=== PATIENT | male | born 1970 | race American Indian/Alaskan Native ===

== ENCOUNTER 2017-10-25 22:13 | Emergency (ER) | payer MEDICAID, OTHER ==
--- NOTE | 2017-10-25 22:30 | EDM.PDOC ---
ED HPI GENERAL MEDICAL PROBLEM - General Chief Complaint: Trauma Stated Complaint: AMBULANCE Time Seen by Provider: 10/25/17 22:22 Source of Information: Reports: Patient, EMS History Limitations: Reports: No Limitations - History of Present Illness INITIAL COMMENTS - FREE TEXT/NARRATIVE: EMS states pt was sitting in sister's p/u c/o falling on stairs ~ 1 hours ago. pt unable recall exactly c/o pain face and low chest-epiG area. sister arrived states doesn't know what happened. pt's daughter called them to take him to the hospital. pt admits to drinking "too much today". Bilateral Lower Chest Pain Score (Numeric/FACES): 8 - Related Data Allergies Allergy/AdvReac Type Severity Reaction Status Date / Time No Known Allergies Allergy Verified 10/25/17 22:25 Home Meds: Home Meds . [No Known Home Meds] 06/03/16 [History] Past Medical History HEENT History: Reports: None Cardiovascular History: Reports: None Respiratory History: Reports: None Gastrointestinal History: Reports: None Genitourinary History: Reports: None Musculoskeletal History: Reports: None Neurological History: Reports: None Psychiatric History: Reports: None Endocrine/Metabolic History: Reports: None Hematologic History: Reports: None Immunologic History: Reports: None Oncologic (Cancer) History: Reports: None Dermatologic History: Reports: None Social & Family History - Tobacco Use Smoking Status *Q: Light Tobacco Smoker Years of Tobacco use: 20 Packs/Tins Daily: 0.5 - Caffeine Use Caffeine Use: Reports: Coffee, Soda - Alcohol Use Days Per Week of Alcohol Use: 1 Number of Drinks Per Day: 6 Total Drinks Per Week: 6 - Recreational Drug Use Recreational Drug Use: No Review of Systems - Review of Systems Review Of Systems: ROS reveals no pertinent complaints other than HPI. ED EXAM, GENERAL - Physical Exam Exam: See Below Exam Limited By: No Limitations General Appearance: Alert, WD/WN, Mild Distress, Moderate Distress, Other (pain) Eye Exam: Bilateral Eye: PERRL (pupils ess ER @ 4mm) Ears: Hearing Grossly Normal Throat/Mouth: Normal Voice, No Airway Compromise Head: Facial Swelling (bilateral cheek ecchymosis, no O/B.), Facial Tenderness, Other Neck: Non-Tender, Full Range of Motion Respiratory/Chest: No Respiratory Distress Cardiovascular: Regular Rate, Rhythm GI/Abdominal: Guarding, Tender, Other. No: Distended (epiG area of ecchymosis) , Rigid, Rebound Neurological: Alert, Oriented, Normal Cognition, Normal Gait, No Motor/Sensory Deficits Psychiatric: Tearful Skin Exam: Warm, Dry, Normal Color Lymphatic: No Adenopathy Course - Vital Signs Last Recorded V/S: Last Vital Signs Temp 37.9 C 10/26/17 01:29 Pulse 107 H 10/26/17 01:29 Resp 16 10/26/17 01:29 BP 103/56 L 10/26/17 01:29 Pulse Ox 94 L 10/26/17 01:29 - Orders/Labs/Meds Orders: Active Orders 24 hr Category Date Time Status Abdomen wo Cont [CT] Urgent Exams 10/25/17 23:25 Taken Cervical Spine wo Cont [CT] Urgent Exams 10/25/17 22:26 Taken Chest Abdomen Pelvis w Cont [CT] Urgent Exams 10/25/17 22:26 Ordered Head wo Cont [CT] Urgent Exams 10/25/17 22:26 Taken Max Facial Sinus wo Cont [CT] Urgent Exams 10/25/17 23:02 Taken Sodium Chloride 0.9% [Normal Saline] 1,000 ml Med 10/25/17 22:30 Active IV ASDIRECTED Medication Orders Sodium Chloride (Normal Saline) 1,000 mls @ 200 mls/hr IV ASDIRECTED AYAKA Last Admin: 10/25/17 22:39 Dose: 200 mls/hr Labs: Laboratory Tests 10/25/17 10/25/17 Range/Units 22:25 22:25 WBC 10.1 H (5.0-10.0) 10^3/uL RBC 4.89 (4.6-6.2) 10^6/uL Hgb 15.1 (14.0-18.0) g/dL Hct 42.5 (40.0-54.0) % MCV 86.9 D (80-100) fL MCH 30.9 (27.0-34.0) pg MCHC 35.5 H (33.0-35.0) g/dL Plt Count 177 (150-450) 10^3/uL Neut % (Auto) 76.2 H (42.2-75.2) % Lymph % (Auto) 14.8 L (20.5-50.1) % Jessamine % (Auto) 7.8 (2-8) % Eos % (Auto) 0.7 L (1.0-3.0) % Baso % (Auto) 0.5 (0.0-1.0) % Sodium 137 (135-145) mmol/L Potassium 4.0 (3.6-5.0) mmol/L Chloride 101 (101-111) mmol/L Carbon Dioxide 23.0 (21.0-31.0) mmol/L Anion Gap 17.0 BUN 23 H (7-18) mg/dL Creatinine 0.9 (0.6-1.3) mg/dL Est Cr Clr Drug Dosing 101.47 mL/min Estimated GFR (MDRD) > 60 BUN/Creatinine Ratio 25.55 Glucose 234 H (74-105) mg/dL Calcium 9.3 (8.4-10.2) mg/dl Total Bilirubin 2.1 H (0.2-1.0) mg/dL AST 88 H (10-42) IU/L ALT 53 (10-60) IU/L Alkaline Phosphatase 107 (42-121) IU/L Troponin I < 0.02 (0.00-0.02) ng/ml Total Protein 7.8 (6.7-8.2) g/dl Albumin 4.4 (3.2-5.5) g/dl Globulin 3.4 Albumin/Globulin Ratio 1.29 Ethyl Alcohol 185 mg/dL Meds: Medications Generic Name Dose Route Start Last Admin Trade Name Freq PRN Reason Stop Dose Admin Sodium Chloride 1,000 mls @ 200 mls/hr 10/25/17 22:30 10/25/17 22:39 Normal Saline IV 200 mls/hr ASDIRECTED AYAKA Administration Discontinued Medications Generic Name Dose Route Start Last Admin Trade Name Freq PRN Reason Stop Dose Admin Iopamidol 100 ml 10/25/17 22:46 Isovue-300 (61%) IVPUSH 10/25/17 22:47 ONETIME ONE Morphine Sulfate 2 mg 10/25/17 22:30 10/25/17 22:35 Morphine IVPUSH 10/25/17 22:31 2 mg ONETIME ONE Administration Morphine Sulfate 2 mg 10/25/17 23:17 10/25/17 23:43 Morphine IVPUSH 10/25/17 23:18 2 mg ONETIME ONE Administration Ondansetron HCl 4 mg 10/25/17 22:30 10/25/17 22:35 Zofran IV 10/25/17 22:31 4 mg ONETIME ONE Administration Departure - Departure Time of Disposition: 01:36 Disposition: Home, Self-Care 01 Condition: Good Clinical Impression: Concussion with brief (less than one hour) loss of consciousness Contusion of face Qualifiers: Encounter type: initial encounter Qualified Code(s): S00.83XA - Contusion of other part of head, initial encounter Ribs, multiple fractures Qualifiers: Encounter type: initial encounter Fracture type: closed Laterality: right Qualified Code(s): S22.41XA - Multiple fractures of ribs, right side, initial encounter for closed fracture - Discharge Information Instructions: Rib Fracture, [id number] Forms: ED Department Discharge Additional Instructions: 1) rest and avoid bending lifting straining 2) take frequent deep breaths 3) follow up at clinic Saturday 4) recheck if there is any change or concern this . rx given; flexeril 10mg bid prn x 12 vicodin 5/325mg bid prn pain x 6 - My Orders Last 24 Hours: My Active Orders 10/25/17 22:26 Cervical Spine wo Cont [CT] Urgent Chest Abdomen Pelvis w Cont [CT] Urgent Head wo Cont [CT] Urgent 10/25/17 22:30 Sodium Chloride 0.9% [Normal Saline] 1,000 ml IV ASDIRECTED 10/25/17 23:02 Max Facial Sinus wo Cont [CT] Urgent 10/25/17 23:25 Abdomen wo Cont [CT] Urgent - Assessment/Plan Last 24 Hours: My Active Orders 10/25/17 22:26 Cervical Spine wo Cont [CT] Urgent Chest Abdomen Pelvis w Cont [CT] Urgent Head wo Cont [CT] Urgent 10/25/17 22:30 Sodium Chloride 0.9% [Normal Saline] 1,000 ml IV ASDIRECTED 10/25/17 23:02 Max Facial Sinus wo Cont [CT] Urgent 10/25/17 23:25 Abdomen wo Cont [CT] Urgent
[2017-10-25] MEDS: Ondansetron 4 MG/2 ML SDV IV ONE (22:35)
[2017-10-25] MEDS: Morphine 2 MG/ML Syringe IVPUSH ONE ×2 (22:35→23:43)
[2017-10-25] MEDS: Sodium Chloride 0.9% 1,000 ML IV SCH (22:39)
[2017-10-25] MEDS ORDERED: Iopamidol 612 MG/ML 100 ML Bottle IVPUSH ONE (22:46)
[2017-10-25 22:49] LABS: CHLORIDE,CL 101 mmol/L (101-111); SODIUM,NA 137 mmol/L (135-145)
[2017-10-26 01:31] VITALS: BP 103/56
--- NOTE | 2017-10-28 17:31 | EKG ---
10/25/2017 - DOUGLAS CRONIN - TIME: 2229 hours. FINDINGS: EKG shows sinus tachycardia. [facility] /[id number]
== END 2017-10-26 01:37 | disposition home or self-care (01) ==
LOC: DL.ED 22:13
DX: S06.0X9A Concussion with loss of consciousness of unspecified duration, initial encounter (principal); S00.83XA Contusion of other part of head, initial encounter; S22.41XA Multiple fractures of ribs, right side, initial encounter for closed fracture; F17.210 Nicotine dependence, cigarettes, uncomplicated; W10.9XXA Fall (on) (from) unspecified stairs and steps, initial encounter
CPT/HCPCS: 36415; 70450; 70486; 71260; 72125; 74177; 80053; 84484; 85025; 96361; 96374; 96375; 96376; 99284; G0480; J2270; J2405; J7030; Q9967; 74150